=== PATIENT | female | born 1955 | race Asian ===

== ENCOUNTER 2018-11-24 21:22 | Emergency (ER) | payer BC | END 2018-11-24 21:38 | disposition left against medical advice (07) | LOC: ERS 21:22 | DX: Z53.21 Procedure and treatment not carried out due to patient leaving prior to being seen by health care provider (principal) | CPT/HCPCS: 93005 ==

== ENCOUNTER 2019-09-16 23:35 | Emergency (ER) | payer BC | END 2019-09-16 23:58 | disposition left against medical advice (07) | LOC: ERS 23:35 | DX: Z53.21 Procedure and treatment not carried out due to patient leaving prior to being seen by health care provider (principal) ==